=== PATIENT | male | born 1970 | race Caucasian/White ===

== ENCOUNTER 2021-09-15 08:53 | Day surgery (SDC) | payer BC ==
[~2021-09-15] VITALS: Ht 170.2 cm; Wt 164.8 kg
[~2021-09-15 08:53] MED LIST: ADVIL200 MG PO; ALEVE 220MG220 MG PO; CAL PO; CALCIUM CITRATE1 TA1 PO; FLONASEALLERGY NS; GLUCOPHAGE500 MG/TAB PO; LORTAB 5/500 501 TAB PO; NO HOME MEDICATIONS; ZYRTEC 10MG10 MG PO
[2021-09-15 10:12] VITALS: BP 158/103; PULSE 69; TEMP 96.4
[2021-09-15 11:00] VITALS: BP 89/46; PULSE 64; TEMP 97.8
[2021-09-15 11:15] VITALS: BP 107/68; PULSE 66; TEMP 98
[2021-09-15 11:43] VITALS: BP 120/60; PULSE 85; TEMP 97.9
[2021-09-15 15:59] VITALS: BP 89/46; PULSE 63
== END 2021-09-15 11:40 | disposition home or self-care (01) ==
LOC: SDCO 08:53
DX: Z12.11 Encounter for screening for malignant neoplasm of colon (principal); D12.5 Benign neoplasm of sigmoid colon; Z87.891 Personal history of nicotine dependence
CPT/HCPCS: J2704; J7030